=== PATIENT | male | born 2000 | race Caucasian/White ===

== ENCOUNTER 2023-06-08 17:22 | Emergency (ER) | payer OTHER, SELFPAY ==
[2023-06-08 17:37] VITALS: BP 111/62; PULSE 68; RESP 16; TEMP 36.9; O2SAT 99
--- NOTE | 2023-06-08 17:46 | ED.HA ---
HPI - Headache General Chief Complaint: Fall Stated Complaint: nausea,bump on head,headache Time Seen by Provider: 06/08/23 17:29 Source: patient Mode of arrival: ambulatory Limitations: no limitations History of Present Illness HPI Narrative: Arnol is a 23-year-old male patient presenting to the clinic today with complaints of head nausea, bump on his head, and headache. He reports he tripped down some steps today around 330 in hit the front of his head. He does have a use ache to the mid lower forehead. Denies any loss of consciousness or neck pain. No obvious epistaxis. Was able to get up on his own. Reported some dizziness right after falling and hitting his head but denies any dizziness currently. No visual changes. Related Data Allergies Allergy/AdvReac Type Severity Reaction Status Date / Time No Known Allergies Allergy Verified 06/08/23 17:54 Review of Systems Review of Systems: Pertinent positives per HPI. Patient denies any fever, chills, rash, visual changes, dizziness, cough, runny nose, sore throat, shortness of breath, chest pain, palpitations, nausea, vomiting, diarrhea, constipation, abdominal pain, or any urinary issues. PMFSH Comments At the time of my signature, I reviewed and agree with the nursing past medical, surgical, social, and family history. There is no relevant family history pertinent to the patient complaint. Exam Narrative: General: Well-developed, well nourished, in no apparent distress Head: Normocephalic, contusion/knot to the lower mid forehead Eyes: Pupils equally round and reactive to light bilaterally, EOM intact, sclera and conjunctive clear, no discharge, lids normal Ears: TMs intact and clear, ear canals clear, no drainage, grossly hearing normal. Nose: Nares patent, no discharge, no inflammation, no sinus tenderness. Mouth: Oropharynx without lesions or masses, good dentition, MMM. Tongue midline, even rise and fall of uvula Neck: Supple, trachea midline, no enlargement of anterior or posterior cervical nodes, no thyroid masses or goiter palpable. Cardio: Regular rate and rhythm, s1 and s2 normal, no murmur appreciated. Resp: Clear to auscultation bilaterally anteriorly and posteriorly, no rhonchi, rales, wheezing or rubs Musculoskeletal: No deformity, non-tender to palpation, grossly normal range of motion, muscle strength strong and equal, peripheral pulse strong, no edema, no cyanosis, normal gait and station Neuro: Alert and oriented x4 with normal speech, no focal deficits, cranial nerves I through XII intact, muscle strength 5 out of 5, sensation intact bilaterally Course Course Emergency Course: Portions of this record may have been created with voice recognition software. Level of Care: Express Care Visit Vital Signs Vital signs: Vital Signs Temperature 36.9 C 06/08/23 17:37 Pulse Rate 68 06/08/23 17:37 Respiratory Rate 16 06/08/23 17:37 Blood Pressure 111/62 06/08/23 17:37 Pulse Oximetry 99 06/08/23 17:37 Oxygen Delivery Room Air 06/08/23 17:37 Temperature 36.9 C 06/08/23 17:37 Pulse Rate 68 06/08/23 17:37 Respiratory Rate 16 06/08/23 17:37 Blood Pressure 111/62 06/08/23 17:37 Pulse Oximetry 99 06/08/23 17:37 Oxygen Delivery Room Air 06/08/23 17:37 Vital signs reviewed MDM - Headache MDM Narrative Medical decision making narrative: At the time of visit patient is resting comfortably on the exam table. Patient appears to be nontoxic. Plan: I suspect patient has a closed head injury. Patient's neuro exam was normal in the clinic today. Head injury instructions were reviewed with the patient he voiced understanding. Supportive measures were discussed with the patient and they voiced understanding discharge instructions and agrees to treatment plan. Return precautions reviewed Differential Diagnosis Differential diagnosis: Likely migraine, tension headache, headache and sinusitis Discharge
== END 2023-06-08 18:03 | disposition home or self-care (01) ==
PROVIDERS: Emergency Provider Nurse Practitioner Family; PCP Pediatrics
DX: S09.90XA Unspecified injury of head, initial encounter (principal); W10.9XXA Fall (on) (from) unspecified stairs and steps, initial encounter; R51.9 Headache, unspecified
CPT/HCPCS: 99213; G0463

== ENCOUNTER 2023-06-10 12:56 | Emergency (ER) | payer OTHER, SELFPAY ==
--- NOTE | 2023-06-10 13:02 | ED.SKABFB ---
HPI - Skin/Abscess/Foreign Bdy General Chief complaint: Skin/Abscess/Foreign Body Stated complaint: poss cyst Time Seen by Provider: 06/10/23 13:50 Source: patient and RN notes reviewed Mode of arrival: ambulatory Limitations: dementia History of Present Illness HPI narrative: 23-year-old male presents with concern for a ?cyst? to his forehead. Reports they he had a pimple in that area on Tuesday that he tried hot. Reports it has become painful, red, warm. He denies fever, body aches, chills, sweats. Patient is requesting it be on ?popped? complaint: other (Redness) Related Data Home Medications Medication Instructions Recorded Confirmed albuterol sulfate 90 mcg/actuation inhalation 06/08/23 aerosol inhaler brexpiprazole 4 mg tablet (Rexulti) mg 06/08/23 vilazodone 20 mg tablet mg 06/08/23 buspirone 15 mg tablet mg 06/10/23 magnesium 250 mg tablet 250 mg PO DAILY 06/10/23 06/10/23 Allergies Allergy/AdvReac Type Severity Reaction Status Date / Time No Known Allergies Allergy Verified 06/10/23 13:23 Review of Systems Review of Systems: CONSTITUTIONAL: Denies malaise, chills, sweats, or fever. EYES: Denies redness, or discharge. ENT: Denies rhinorrhea, congestion, swollen lips, swollen tongue CARDIOVASCULAR: Denies chest pain, palpitations, or edema. RESPIRATORY: Denies cough or dyspnea. GASTROINTESTINAL: Denies abdominal pain, nausea, vomiting SKIN: Reports redness, swelling near the right eyebrow. Denies purulent drainage, vesicles, bullae, numbness, pain beyond proportion MUSCULOSKELETAL: Denies joint pain or myalgia. NEUROLOGIC: Denies headache. All systems reviewed & are unremarkable except as noted in HPI and below PMFSH Comments At time of signature, agree with nursing past medical, surgical, social and family history. There is no relevant family history pertinent to the presenting complaint Exam Narrative: GENERAL: Well-appearing, well-nourished, and in no acute distress. HEAD: Normocephalic, atraumatic. EYES: PERRLA, conjunctivae clear, upper and lower eyelids unremarkable ENT: Mucous membranes moist. NECK: Supple. No lymphadenopathy CHEST: Clear to auscultation. No respiratory distress. HEART: Regular rate and rhythm. SKIN: Warm, dry. Erythema, induration, tenderness, warmth with sharp margins noted medial to the right eyelid. No vesicles, bullae, necrosis, ecchymosis, crepitus noted. NEURO: Alert and oriented x3. PSYCH: Normal mood and affect HENMT: Head images: 1. Approximately 2 cm area of erythema, warmth, induration without fluctuation, pinpoint pustule noted to the center. Sharp margins with no eye lid involvement Course Course Emergency Course: Patient is aware of diagnosis, understands and agrees to treatment plan. Anticipatory guidance given. Patient agrees to follow-up as directed and is aware of reasons to seek care at the emergency department. Portions of this record may have been created with voice recognition software Level of Care: Express Care Visit Vital Signs Vital signs: Reviewed. Procedures Abscess I/D face: Date of Incision: 06/10/23 Time of Incision: 14:12 Side (if applicable): right Technique: needle aspiration Amount of fluid expressed (mL): 0.1 Irrigation: No Packing used?: none I&D Results: Pus MDM - Skin/Abscess/Foreign Bdy MDM Narrative Medical decision making narrative: Does not appear at this time to be erythema multiforme, bullous, SJS, TEN; no evidence at this time to suggest RMSF, NSTI, endocarditis or Lyme disease; patient looks well, nontoxic and is tolerating oral intake; no neurologic signs or symptoms; no headache, photophobia or neck pain; afebrile. Patient does not have history of of penetrating trauma, laceration, blunt trauma, recent surgery, immunosuppression, malignancy, obesity, alcoholism, corticosteroid use. Discussed the importance of follow-up, patient agre
[2023-06-10 13:09] VITALS: BP 126/62; PULSE 66; RESP 18; TEMP 36.7; O2SAT 97
== END 2023-06-10 14:08 | disposition home or self-care (01) ==
PROVIDERS: Emergency Provider Nurse Practitioner; PCP Internal Medicine
DX: L03.211 Cellulitis of face (principal); L02.01 Cutaneous abscess of face; F41.9 Anxiety disorder, unspecified; F32.A Depression, unspecified
CPT/HCPCS: 10160; 99213; G0463

== ENCOUNTER 2024-07-17 15:07 | Emergency (ER) | payer OTHER, SELFPAY ==
--- NOTE | ~2024-07-17 | CT_ITS ---
CT cervical spine wo con Ordering provider: Mata Guzman MD History: . fall, [facility] . Comparison: None. Technique: CT of the cervical spine was performed without contrast. Sagittal and coronal reformatted images were also obtained and reviewed. Automated exposure control and iterative reconstruction jose hnique were employed. The dose-length product was 386.13 mGy-cm. FINDINGS: VERTEBRAE: No subluxation or acute fracture. The occipital condyles are intact. DISC SPACES: Normal. PARASPINOUS SOFT TISSUES: Normal. IMPRESSION: No acute osseous abnormality cervical spine. Reviewed, dictated and finalized at location A.
--- NOTE | ~2024-07-17 | CT_ITS ---
EXAMINATION: CT brain wo con DATE: 07/17/2024 15:40 INDICATION: Fall with closed head injury TECHNIQUE: Computed tomography (CT) of the head was performed without intravenous contrast. Sagittal and coronal reconstructions were performed. The mA was adjusted according to patient size. Iterative reconstruction technique was employed. The dose-length product was 605.33 mGy-cm. COMPARISON: None FINDINGS: No fracture. No acute intracranial hemorrhage, acute infarction or abnormal extra axial fluid collect ion. Ventricles are normal and symmetric. No mass/mass effect. The orbits, paranasal sinuses and mast oid air cells are normal. IMPRESSION: 1. Normal head CT. No fracture or acute intracranial process. Reviewed, dictated and finalized at location A.
[2024-07-17 15:09] VITALS: BP 122/55; PULSE 96; RESP 16; TEMP 36.9; O2SAT 98
--- NOTE | 2024-07-17 16:05 | ED.FALL ---
HPI - Fall General Chief Complaint: Fall Stated Complaint: fall from ladder, 9 ft, HI Time Seen by Provider: 07/17/24 15:23 History of Present Illness HPI Narrative: 24-year-old male presenting from urgent care for evaluation after a fall off of a roof approximately 8 ft at 8:00 a.m. this morning. Patient tripped and had a mechanical fall and landed onto his left hand and face. He did not lose consciousness and does not take any blood thinner medications. He was able to get up and ambulate without difficulty. Was complaining of some minor pain in his left elbow but no restricted range of motion. He went to urgent care and had imaging done that showed a left radial head fracture. He was placed an appropriate precautions and sling and provided orthopedics follow-up. Patient was not any pain. Patient was instructed by his boss to go to emergency department for clearance back to work as he did hit his head. Patient has no headache, no vision changes. No signs of concussion. No for nausea, vomiting, mental status changes, weakness, fatigue. He is moving all extremities equally, no tenderness in any of his extremities. Denies any complaints at this time. Not taking any pain prior to arrival. C-collar was placed in triage. Related Data Home Medications ?Medication ?Instructions ?Recorded ?Confirmed ?Last Taken ?Type albuterol sulfate 90 mcg/actuation inhalation 06/08/23 Unknown History aerosol inhaler brexpiprazole 4 mg tablet (Rexulti) mg 06/08/23 Unknown History vilazodone 20 mg tablet mg 06/08/23 Unknown History buspirone 15 mg tablet mg 06/10/23 Unknown History magnesium 250 mg tablet 250 mg PO DAILY 06/10/23 06/10/23 Unknown History Allergies Allergy/AdvReac Type Severity Reaction Status Date / Time No Known Allergies Allergy Verified 06/10/23 13:23 Review of Systems Review of Systems: As reviewed above in HPI Exam Narrative: GENERAL: [Well-appearing, well-nourished, and in no acute distress.] HEAD: [Normocephalic, atraumatic.] EYES: [PERRLA and EOMI.] ENT: Nares clear, no rhinorrhea or epistaxis. Mucous membranes moist. NECK: Supple. CHEST: [Clear to auscultation. No respiratory distress.] HEART: [Regular rate and rhythm]. No murmur heard. [Normal peripheral pulses.] ABDOMEN: [Soft, nondistended], [nontender], [No rigidity or guarding] EXTREMITIES: Normal range of motion. [No edema.] Full flexion extension of bilateral elbows and wrist. Flexion extension at the shoulder intact. No midline spinal tenderness. No restricted range of motion of the neck. No step-offs or deformities. Ambulatory without difficulty. SKIN: Warm, dry, no rash. NEURO: [No focal deficits]. Alert and oriented [x3.] PSYCH: [Normal mood and affect.] Course Vital Signs Vital signs: Vital Signs Temperature 36.9 C 07/17/24 15:09 Pulse Rate 96 07/17/24 15:09 Respiratory Rate 16 07/17/24 15:09 Blood Pressure 122/55 L 07/17/24 15:09 Pulse Oximetry 98 07/17/24 15:09 Oxygen Delivery Room Air 07/17/24 15:09 Temperature 36.9 C 07/17/24 15:09 Pulse Rate 96 07/17/24 15:09 Respiratory Rate 16 07/17/24 15:09 Blood Pressure 122/55 L 07/17/24 15:09 Pulse Oximetry 98 07/17/24 15:09 Oxygen Delivery Room Air 07/17/24 15:09 MDM - Fall MDM Narrative Medical decision making narrative: 24-year-old male presenting to the ER for evaluation after falling off a roof. It was mechanical slip and fall and he landed onto his left wrist and face but has no visible evidence of trauma or injury. He was able to get up without assistance and did not lose consciousness. Patient went to urgent care initially for some left elbow pain and received diagnosis of a left radial head fracture and was given a sling and provide orthopedics follow-up. Patient has no complaints of his left elbow at this time. And has good distal neuro vasculature. Full range of motion of the extremities without any reproducible pain. He has no findings of trauma his examination, no midline tenderness, normal neurological assessment. No blood thinner use. Aside from the mechanisms of injury he is relatively low risk for significant intracranial or cervical pathology. Head CT and cervical spine CT ordered this time. He is hemodynamically stable and not in any pain. Imaging studies were independently reviewed and interpreted by radiology. CT scan showed no acute intracranial findings and no cervical pathology. Patient is cleared for work and safe for discharge home at this time. Patient given return precautions and also instructed to follow-up with his provided drug and alcohol treatment specialist from his previous visit from urgent care. Medical Records Attestation: I reviewed the patient's medical records. Imaging Data Attestation: I personally reviewed and interpreted this imaging study as follows: My impression: Impressions Head CT 07/17/24 15:41 IMPRESSION: 1. Normal head CT. No fracture or acute intracranial process. Cervical Spine CT 07/17/24 15:51 IMPRESSION: No acute osseous abnormality cervical spine. Discharge Plan Discharge Clinical Impression: CHI (closed head injury), Fall from roof Patient Disposition: Home Condition: Stable Instructions: Antibiotic Form, Head Injury (ED) Additional Instructions: Your CT of the head and cervical spine shows no injuries. Take Tylenol and ibuprofen for any aches or pains. You are cleared to return to work without any restrictions. Follow-up with the provided drug and alcohol treatment specialist from your recent visit to urgent care for your radial head fracture that does not require any interventions today. Follow-up with regular doctor. Return with any new or worsening concerns. Patient Language: German Prescriptions: No Action magnesium 250 mg Tablet 250 mg PO DAILY buspirone 15 mg tablet sulfamethoxazole-trimethoprim 800-160 mg tablet 1 tablet PO Q12H 7 Days Qty: 14 0RF albuterol sulfate 90 mcg/actuation HFA aerosol inhaler INHALATION vilazodone 20 mg tablet Rexulti 4 mg tablet Follow-up/Referrals: Lexis,Zachary Prescott MD [Primary Care Provider] - Stand Alone Forms: Work/School Release IP Time of Disposition: 16:05
--- OUTSIDE RECORDS SUMMARY | 2024-07-17 17:20 | XMS_ITS | Clinical Summary ---
Author Organization [facility] Address [address] [place] [id number] Care Team Providers Care Residence Hall Director Name Role Phone Zachary Pires MD Primary Care Provider Zachary Pires MD Unavailable [phone] Allergies No known active allergies Medications busPIRone (BUSPAR) 15 mg tabletIndications: Generalized Anxiety Disorder Take 1 tablet (15 mg total) by mouth every morning 04/11/19 21 Active Rexulti 4 mg tabletIndications: Depression Treatment Adjunct Take 1 tablet (4 mg total) by mouth nightly 10/22/19 23 Active albuterol HFA (PROVENTIL HFA,VENTOLIN HFA,PROAIR HFA) 90 mcg/actuation inhalerIndications :Mild intermittent asthma without complication INHALE 2 PUFFS BY MOUTH EVERY 6 HOURS NEEDED FOR WHEEZING 8.5 g 1 05/23/19 24 Active Additional Information Patient taking differently:2 puff Every 6 hours PRN,wheezing, for wheezing, Informant: Self, Reported on 10/24/2023 vilazodone (VIIBRYD) 40 mg tablet Take 1 tablet (40 mg total) by mouth nightly 09/08/19 24 Active magnesium oxide (MAG-OX) 400 mg (241.3 mg elemental magnesium) tabletIndications: hypomagnesemia Take 1 tablet (400 mg total) by mouth nightly Active ARIPiprazole (ABILIFY) 5 mg tablet Take 1 tablet (5 mg total) by mouth daily Active oxyCODONE (ROXICODONE) solution 5 mg/5 mLIndications:Pain Take 5 mL (5 mg total) by mouth every 4 (four) hours as needed for pain for up to 40 doses 200 mL 11/08/19 Active human papillomavirus 9-valent 0.5 mL suspensionIndicati ons:Encounter for wellness examination in adult Pharmacy to inject 0.5 mL IM at 0 and 4 months. He has already had his 1st dose. 0.5 mL 2 01/17/20 24 Active Active Problems Problem Noted Date Diagnosed Date HERMAN (obstructive sleep apnea) 01/25/2023 Gynecomastia 06/20/2017 Mixed anxiety depressive disorder 04/18/2017 Resolved Problems Problem Noted Date Diagnosed Date Resolved Date Large tonsils 06/16/2023 01/17/2024 Obstructive sleep apnea syndrome 06/16/2023 01/17/2024 Encounter for preventive health examination 04/04/2017 04/20/2019 Immunizations Immunization Administration Dates Next Due DTaP, Unspecified 05/09/2003, 0,1998,07/02,1998 Flucelvax Influenza Quad 01/04/2018,02/27/2017 HPV, Quadrivalent 08/08/2012 Hep A, Unspecified 08/08/2012,10/27/2009 Hep B, Unspecified 1998,1998, 998 HiB 09/07/1999, 9,1998,05/02 Influenza, Quadrivalent, Monica l Culture-based MDCK, Preservative Free, Antibiotic Free, Intramuscular 02/21/2022 Influenza, Quadrivalent, Rec ombinant, Egg Free, Preservative Free, Intramuscular 03/23/2021 Influenza, Quadrivalent, Spl it, Preservative Free, Intramuscular 01/24/2020,02/26/2019 Influenza, Unspecified 03/30/2013 MMR 05/09/2003,04/23/1999 Meningococcal ACWY, Unspecified 10/27/2009 Polio, Unspecified 05/09/2003, 9,1998,05/02 Tdap 04/20/2019,10/27/2009 Varicella 06/25/1999 Surgical History Surgery Date Site/Laterality Comments TONSILLECTOMY Medical History Medical History Date Comments Depression Anxiety OCD (obsessive compulsive disorder) PTSD (post-traumatic stress disorder) HERMAN (obstructive sleep apnea) Family History Medical History Relation Name Comments No Known Problems Father No Known Problems Mother Relation Name Status Comments Father Alive Mother Alive Social History Tobacco Use Types Packs/Day Years Used Date Smoking Tobacco: Former Cigarettes 0.1 0.8 S tarted: 10/10/2023 Passive Smoke Exposure: Current Smokeless Tobacco: Never Tobacco Cessation:Counseling Given: Not Answered Comments:Patient smokes a couple times a week. Started smoking cigarettes a couple of weeks ago. Alcohol Use Standard Drinks/Week Comments Not Currently 0 (1 standard drink = 0.6 oz pur e alcohol) AUDIT-C Answer Date Recorded Q1: How often do you have a drink containing alc ohol? 2-4 times a month 01/17/2024 Q2: How many drinks containi ng alcohol do you have on a typical day when you are drinking? 1 or 2 01/17/2024 Q3: How often do you have si x or more drinks on one occasion? Never 01/17/2024 Personal Safety Answer Date Recorded Have you ever been in or are you currently in a harmful physical or emotional relationship or is someone making you feel afraid or unsafe? 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 Not on file Not on file Obstetrics History Last Filed Vital Signs Vital Sign Reading Time Taken Comments Blood Pressure 108/72 01/17/2024 7:21 AM CDT Pulse 78 01/17/2024 7:21 AM CDT Temperature 36.4 C (97.5 F) 01/17/2024 7:21 AM CDT Respiratory Rate 13 11/08/2023 9:50 AM CDT Oxygen Saturation 95% 01/17/2024 7:21 AM CDT Inhaled Oxygen Concentration - - Weight 74.6 kg (164 lb 8 oz) 01/17/2024 7:21 AM CDT Height 170.2 cm (5' 7 ) 10/24/2023 11:25 AM CDT Body Mass Index 25.76 10/24/2023 11:25 AM CDT Plan of Treatment Health Maintenance Due Date Last Done Comments Depression Screening 1998 Varicella Vaccines (2 of 2 - 2-dose childhood series) 2002 06/25/1999 HPV Vaccines (2 - Male 2-dose series) 02/08/2013 08/08/2012 Covid-19 Vaccine ( season) 2023 02/21/2022, 03/23/2021, 07/24/2020, Additional history exists Influenza Vaccine (Season Ended) 2024 02/21/2022, 03/23/2021, 01/24/2020, Additional history exists Regular Well Visit/Exam 18-64 01/16/2025 01/17/2024, 06/19/2021, 04/20/2019 DTaP/Tdap/Td Vaccine (8 - Td or Tdap) 04/20/2029 04/20/2019, 10/27/2009, 05/09/2003, Additional history exists Hepatitis B Screening Completed 1998 , 1998, 1998 Hepatitis C Screening Completed 04/20/2019 Pneumococcal vaccine <65 Aged Out No longer eligible based on patient's age to complete this topic Procedures Procedure Name Priority Date/Time Associated Diagnosis Comments HEPATITIS C ANTIBODY Routine 04/20/2019 12:26 PM CONSTRUCTION ASSISTANT Screen for STD (sexually transmitted disease) from Last 3 Months or Most Recently Relevant to Health Maintenance Results * Hepatitis C antibody (04/20/2019 12:26 PM CONSTRUCTION ASSISTANT) Pathologist [facility] Hep C Ab Nonreactive Nonreactive [facility] Comment: Interpretive Data Positive results should be confirmed by a molecular method. If positive, a second separately collected sample should be submitted for Hepatitis C Virus (HCV) RNA Detection and Quantitation by Real-Time Reverse Film Processor-PCR (RT-PCR). Current interpretive data was last revised on 2016. Blood specimen (specimen) 04/20/2019 12:26 PM CONSTRUCTION ASSISTANT 04/20/2019 5:21 PM CONSTRUCTION ASSISTANT Zachary Pires MD LAB MICROBIOLOGY - GEN ERAL ORDERABLES Edited Result - Final [facility] Department [place] [address] from Last 3 Months or Most Recently Relevant to Health Maintenance Insurance [employer] Address: [facility] [id number] [place] [address] [employer] Address: [facility] [id number] [place] [address] [employer] [employer] Address: [facility] [id number] [place] [address] [employer] Care Teams Residence Hall Director Relationship Specialty Start Date End Date Zachary Pires MD [address] [place] [address] PCP - General 10/30/19 Zachary Pires MD [address] [place] [address] 10/30/19
--- OUTSIDE RECORDS SUMMARY | 2024-07-17 17:20 | XMS_ITS | Encounter Summary ---
Author Organization [facility] Address [address] [place] [address] Phone Care Team Providers Care Ad Clerk Name Role Phone Zachary Pires MD Primary Care Provider Zachary Pires MD Unavailable [phone] Encounter Details Date Type Department Care Team (Late st Contact Info) Description 05/11/[address] 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
--- OUTSIDE RECORDS SUMMARY | 2024-07-17 17:20 | XMS_ITS ---
Author Organization [facility] Address [address] [place] [address] Care Team Providers Care Distributor Publications Name Role Phone Mariela Bennett Primary Care Provider Sylvia Pena Unavailable [phone] REASON FOR VISIT Referral Addressed: Client referred to EMDR therapy Encounters Encounter Location Date Provider Diagnosis [address] [address] 07/04/2024 Sylvia Pena PTSD (post-traumatic stress disorder) F43.10 Assessments Encounter Date Diagnosis (ICD Code) Assessment Notes Treatment Notes Treatment Clinical Notes Section Notes 07/04/2024 PTSD (post-traumatic stress disorder) (ICD-10 - F43.10) Plan Of Treatment No Information Progress Notes * Andrew LANGENiviaOB:2000 ( 24 yo M)Acc No.[id number]:07/04/2024 Patient: Arnol AGUILERA Provider: Leonardo Pena :2000 A ge:24 Y S ex:Male Date:07/04/2024 Phone: Address:[address] [place], [place] [id number] Pcp:Mariela Bennett Subjective: * Chief Complaints: * R eferral Addressed: Client referred to EMDR therapy * HPI: B ehavioral Health Treatment: Patient is seeking services for EMDR counseling. Client was provided central access information and intake process for scheduling. * Medical History: * Surgical History: * Hospitalization/Major Diagno stic Procedure: * Medications: Objective: * Vitals: * Examination: G eneral Examination: Mental Status Exam A ttitude and Behavior C ooperativeMood S tableAffect A nxiousSpeech A ppropriateThought Process C oherent and Goal Directed, LogicalInsight A ppropriateJudgement A ppropriateSensorium and Cognition A lertOriented to P erson, Place, Time, Situation. D uring today's session via telehealth. Assessment: * Assessment: 1. P TSD (post-traumatic stress disorder) - F43.10 (Primary) Plan: * Treatment: * Procedure Codes: 9 0832 PSYTX PT&/FAMILY 30 MINUTES, Modifiers: AJ * * Electronically co-signed by Lula Holm LCSW, [id number] on 07/04/2024 at 04:35 PM CDT Sign off status: Completed true * Provider: Leonardo Pena Date: 0 07/04/2024 Generated for Meño perkins/Martin/Mindy on: 0 07/17/2024 05:20 PM CDT History and Physical Notes * Examination Category Sub-Category Detail Notes Category Not es General Examination Mental Status Exam Attitude and Behavior: Cooperative During today's session via telehealth Mood: Stable Affect: Anxious Speech: Appropriate Thought Process: Coherent and Goal Direc krupa, Logical Insight: Appropriate Judgement: Appropriate Sensorium and Cognition: Alert Oriented to: Person, Place, Time, Situat ion
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
--- OUTSIDE RECORDS SUMMARY | 2024-07-17 17:20 | XMS_ITS ---
Author Organization [facility] Address [address] [place] [address] Care Team Providers Care Belt And Link Shop Supervisor Name Role Phone Mariela Bennett Primary Care Provider Encounters Encounter Location Date Provider Diagnosis [address] [place] [address] 06/26/2024 Mariela Bennett Plan Of Treatment No Information Progress Notes * Cisco LANGEOB:2000 ( 24 yo M)Acc No.[id number]:06/26/2024 Patient: Arnol AGUILERA :2000 A ge:24 Y S ex:Male Phone: Address:[address] [place], [address] * true * Date: Generated for Meño perkins/Martin/eTransmitting on: 0 07/17/2024 05:20 PM CDT
--- OUTSIDE RECORDS SUMMARY | 2024-07-17 17:20 | XMS_ITS | Referral Summary ---
Author Organization [facility] Address [address] [place] [address] Care Team Providers Care Nailhead Setter Name Role Phone Zachary Pires MD Primary Care Provider Zachary Pires MD Unavailable [phone] Allergies No known active allergies Medications busPIRone [...] Unspecified 05/09/2003, 9,1998,05/02 Tdap 04/20/2019,10/27/2009 Varicella 06/25/1999 Social History Tobacco Use Types Packs/Day Years [...] on file Legal Sex Male 11:24 AM FERMENTING CELLARS RECEIVER Gender Identity Male 04/15/2020 12:15 PM FERMENTING CELLARS RECEIVER Sexual Orientation Straight 04/15/2020 12 :15 PM FERMENTING CELLARS RECEIVER Occupation Industry Job Start Date Job End Date [employer] Not on file 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 Comment: Interpretive Data Positive results should be confirmed by a molecular method. If positive, a second separately collected sample should be submitted for Hepatitis C Virus (HCV) RNA Detection and Quantitation by Real-Time Reverse Study Manager-PCR (RT-PCR). Current interpretive data was last revised on 2016. Blood specimen (specimen) 04/20/2019 12:26 PM FERMENTING CELLARS RECEIVER 04/20/2019 5:21 PM FERMENTING CELLARS RECEIVER us Zachary Pires MD LAB MICROBIOLOGY - GEN ERAL ORDERABLES Edited Result - Final [facility] [place] [address] from Last 3 Months or Most Recently Relevant to Health Maintenance Insurance [employer] Address: [facility] [id number] [place] [address] [facility] [employer] Address: [address] [place] [address] [employer] Address: [address] [place] [address] [employer] Address: [facility] [id number] [place] [address] Care Teams Nailhead Setter Relationship Specialty Start Date End Date Zachary Pires MD [address] [place], [place] [id number] PCP - General 10/30/19 Zachary Pires MD [address] [place] [address] 10/30/19
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
--- OUTSIDE RECORDS SUMMARY | 2024-07-17 17:52 | XMS_ITS | Referral Summary ---
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 If positive, a second separately collected sample should be submitted for Hepatitis C Virus (HCV) RNA Detection and Quantitation by Real-Time Reverse Insulation Worker Furnace Installer-PCR (RT-PCR). Current interpretive data was last revised on 2016. Blood specimen (specimen) 04/20/2019 12:26 PM BIOLOGY RESEARCH ASSISTANT 04/20/2019 5:21 PM BIOLOGY RESEARCH ASSISTANT us Zachary Pires MD LAB MICROBIOLOGY - GEN ERAL ORDERABLES Edited Result - Final [facility] [place] [address] from Last 3 Months or Most Recently Relevant to Health Maintenance Insurance [facility] EM[employer]EE [employer]ALTH PLANS Address: [facility] [id number] [place] [address] [employer] [employer]ANS Address: [address] [place] [address] [employer] [employer] Address: [id number] [place] [address] [employer] [facility] [facility] [employer] Address: [facility] [id number] [place] [address] Care Teams Automobile Salesman Relationship Specialty Start Date End Date Zachary Pires MD [address] [place], [place] [id number] PCP - General 10/30/19 Zachary Pires MD [address] [place] [address] 10/30/19
--- OUTSIDE RECORDS SUMMARY | 2024-07-17 17:52 | XMS_ITS | Encounter Summary ---
Author Organization [facility] Address [address] [place] [address] Phone Care Team Providers Care Nursing Associate Name Role Phone Zachary Pires MD Primary Care Provider Zachary Pires MD Unavailable [phone] Encounter Details Date Type Department Care Team (Late st Contact Info) Description 05/11/2021 Telephone [facility] [address] [place] [address] Zachary Pires MD [address] [place] [address] Social History Tobacco Use Types Packs/Day Years Used Date Smoking Tobacco: Former Cigars Smokeless Tobacco: Never Alcohol Use Standard Drinks/Week Comments Not Currently 0 (1 standard drink = 0.6 oz pur e alcohol) Sex and Gender Information Value Date Recorded Sex Assigned at Not on file Legal Sex Male 11:24 AM BOILER FIREMAN Gender Identity Male 04/15/2020 12:15 PM BOILER FIREMAN Sexual Orientation Straight 04/15/2020 12 :15 PM BOILER FIREMAN 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
--- OUTSIDE RECORDS SUMMARY | 2024-07-17 17:52 | XMS_ITS | Clinical Summary ---
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 COATER Gender Identity Male 04/15/2020 12:15 PM JEWELRY COATER Sexual Orientation Straight 04/15/2020 12 :15 PM JEWELRY COATER Occupation Industry Job Start Date Job End Date [employer] Not on file Not on file Not on file [employer] Not on file Not on file Not [...] HEPATITIS C ANTIBODY Routine 04/20/2019 12:26 PM JEWELRY COATER Screen for STD (sexually transmitted disease) from Last 3 Months or Most Recently Relevant to Health Maintenance Results * Hepatitis C antibody (04/20/2019 12:26 PM JEWELRY COATER) Pathologist [facility] Hep C Ab Nonreactive Nonreactive [facility] Comment: Interpretive Data Positive results should be confirmed by a molecular method. If positive, a second separately collected sample should be submitted for Hepatitis C Virus (HCV) RNA Detection and Quantitation by Real-Time Reverse Cherry Picker Operator-PCR (RT-PCR). Current interpretive data was last revised on 2016. Blood specimen (specimen) 04/20/2019 12:26 PM JEWELRY COATER 04/20/2019 5:21 PM JEWELRY COATER Zcahary Pires MD LAB MICROBIOLOGY - GEN ERAL ORDERABLES Edited Result - Final [facility] Department [place] [address] from Last 3 Months or Most Recently Relevant to Health Maintenance Insurance CIGNA CIGNA CIGNA CIGNA Care Teams Supervisor Cooler Service Relationship Specialty Start Date End Date Zachary Pires MD [address] [place] [address] PCP - General 10/30/19 Zachary Pires MD [address] [place] [address] 10/30/19
== END 2024-07-17 16:35 | disposition home or self-care (01) ==
PROVIDERS: Emergency Provider Student in an Organized Health Care Education/Training Program; PCP Internal Medicine
DX: S09.90XA Unspecified injury of head, initial encounter (principal); W13.2XXA Fall from, out of or through roof, initial encounter
CPT/HCPCS: 70450; 72125; 99284

== ENCOUNTER 2024-12-23 12:05 | Emergency (ER) | payer SELFPAY ==
[2024-12-23 12:16] VITALS: BP 138/69; PULSE 103; RESP 18; TEMP 37.6; O2SAT 97
[2024-12-23 12:49] LABS: EDSTREPNEGPOS1 Negative (Negative)
--- NOTE | 2024-12-23 13:03 | ED.URI ---
HPI - URI/Sore Throat General Chief Complaint: Upper Respiratory Infection Stated Complaint: Sore Throat Time Seen by Provider: 12/23/24 13:00 pro Source: patient, RN notes reviewed and old records reviewed Mode of arrival: ambulatory Limitations: no limitations History of Present Illness HPI Narrative: 24 year old male patient presents to express care with complaints of sore throat, nasal congestion with drainage, productive cough of yellow tinged thick mucous has felt feverish and has had chills with some body aches since yesterday.. Patient reports that he took home Covid test today which was negative. Patient states that he has been taking Tylenol and Ibupfrofen for his symptoms. MD elicited complaint: fever, cough, sore throat, rhinorrhea and nasal congestion Pertinent past history: other (reactive airway disease) Onset (ago): day(s) (since yesterday) Consistency: constant Severity: moderate Description of mucous: yellow Able to tolerate fluids by mouth: Yes Treatments prior to arrival: acetaminophen and ibuprofen Related Data Home Medications ?Medication ?Instructions ?Recorded ?Confirmed ?Last Taken ?Type albuterol sulfate 90 mcg/actuation inhalation 06/08/23 Unknown History aerosol inhaler brexpiprazole 4 mg tablet (Rexulti) mg 06/08/23 Unknown History buspirone 15 mg tablet mg 06/10/23 Unknown History magnesium 250 mg tablet 250 mg PO DAILY 06/10/23 06/10/23 Unknown History vilazodone 40 mg tablet mg 12/23/24 Unknown History Allergies Allergy/AdvReac Type Severity Reaction Status Date / Time No Known Allergies Allergy Verified 12/23/24 12:19 Review of Systems Review of Systems: CONSTITUTIONAL: reports malaise, chills, sweats, unknown if fever. EYES: Denies visual changes, redness, or discharge. ENT: Reports rhinorrhea, congestion, sinus pain, no otalgia and positive for sore throat. CARDIOVASCULAR: Denies chest pain, palpitations, or edema. RESPIRATORY: Reports productive cough.? Denies dyspnea. GASTROINTESTINAL: Denies abdominal pain, nausea, vomiting, diarrhea SKIN: Denies rash or itching. MUSCULOSKELETAL: Reports myalgia. NEUROLOGIC: Denies headache. All systems reviewed & are unremarkable except as noted in HPI and below PMFSH Past Medical History Medical History Anxiety and depression Reactive airway disease Surgical History Surgical History History of tonsillectomy Social History Social History Smoking status: Current some day smoker Tobacco type: cigarettes Alcohol intake: current Alcohol use details: social Substance use type: does not use Gender identity (if verbalized by the patient): Male Comments At time of signature, agree with nursing past medical, surgical, social and family history. There is no relevant family history pertinent to the presenting complaint Exam Narrative: GENERAL: Well-appearing, well-nourished, and in no acute distress. HEAD: Normocephalic EYES: PERRLA, conjunctivae clear ENT: Nares clear, turbinates edematous and erythematous, clear discharge. Mucous membranes moist. TM pearly weiss with dull light reflex bilaterally; no tragal tenderness. Oropharynx erythematous without lesions. Tonsils not present and throat without exudate, no drooling, no hoarseness, no trismus, uvula midline, post nasal drainage NECK: Supple. No lymphadenopathy CHEST: Clear to auscultation, breath sounds equal. No wheezing, rhonchi, rales, or stridor. No respiratory distress, speaks in full sentences.productive cough SAO2 97% on room air HEART: Regular rate and rhythm. No murmur heard. SKIN: Warm, dry, no rash. NEURO: Alert and oriented x3. PSYCH: Normal mood and affect Course Course Emergency Course: Patient is aware of diagnosis, understands and agrees to treatment plan.? Anticipatory guidance given.? Patient agrees to follow-up as directed and is aware of reasons to seek care at the emergency department. Portions of this record may have been created with voice recognition software Level of Care: Express Care Visit Vital Signs Vital signs: Vital Signs Temperature 37.6 C H 12/23/24 12:16 Pulse Rate 103 H 12/23/24 12:16 Respiratory Rate 18 12/23/24 12:16 Blood Pressure 138/69 12/23/24 12:16 Pulse Oximetry 97 12/23/24 12:16 Oxygen Delivery Room Air 12/23/24 12:16 Temperature 37.6 C H 12/23/24 12:16 Pulse Rate 103 H 12/23/24 12:16 Respiratory Rate 18 12/23/24 12:16 Blood Pressure 138/69 12/23/24 12:16 Pulse Oximetry 97 12/23/24 12:16 Oxygen Delivery Room Air 12/23/24 12:16 Reviewed MDM - URI/Sore Throat MDM Narrative Medical decision making narrative: Differential diagnosis considered: Ordoñez virus, strep pharyngitis, allergic rhinitis, upper respiratory tract infection, sinusitis, rhinosinusitis, nasopharyngitis. viral pharyngitis, otitis media, otitis externa, pneumonia, bronchitis, viral cough syndrome, viral syndrome, and influenza.? Exam findings show no acute concerns or changes; patient is non-toxic appearing and is in no distress.? Patient is appropriate for outpatient treatment and follow-up. Differential Diagnosis Differential diagnosis: Likely upper respiratory infection, viral infection, pharyngitis and other (strep pharyngitis, cough and congestion) Medical Records Attestation: I reviewed the patient's medical records. Lab Data Attestation: I reviewed the patient's lab results. Lab results narrative: strep screen negative, culture sent Labs: Lab Results 12/23/24 Range/Units 12:14 POC Grp A Strep Screen Negative (Negative) reviewed Critical Care Time Critical Care Time Critical Care Time: No Discharge Plan Discharge Clinical Impression: Upper respiratory infection Qualifiers: URI type: unspecified URI Qualified Code(s): J06.9 - Acute upper respiratory infection, unspecified Pharyngitis Qualifiers: Pharyngitis/tonsillitis etiology: unspecified etiology Qualified Code(s): J02.9 - Acute pharyngitis, unspecified Patient Disposition: Home Condition: Stable Instructions: Antibiotic Form Additional Instructions: Increase fluids especially juices and water [id number] cough and cold medicine of your choice for your symptoms Zyrtec, Claritin or Mae daily for nasal congestion or drainage heat to the face 20-30 minutes 4-6 times a day for pain Salt water gargles, throat lozenges or throat sprays as desired . Take the entire course of antibiotics. Throw away your current toothbrush and begin using a new toothbrush in 48 hours in order to prevent re-infection. Sanitize all reusable water bottles . Do not share items with others. Salt water gargles may alleviate some of the throat discomfort. You can take Tylenol or ibuprofen per the package instructions for pain/fever. If your symptoms persist, change or worsen significantly before you can contact your personal physician then please, without delay, go to the emergency department for further evaluation. Follow-up with PCP in 7-10 days or sooner if needed Follow up with PCP soon in regards to your blood pressure which is elevated above threshold for referral. Blood pressure above 120/80 may indicate pre-hypertension. 138/69 Patient Language: Citizen Of [place] Prescriptions: New amoxicillin 875 mg tablet 875 mg PO Q12H Qty: 20 0RF No Action magnesium 250 mg Tablet 250 mg PO DAILY buspirone 15 mg tablet vilazodone 40 mg tablet albuterol sulfate 90 mcg/actuation HFA aerosol inhaler INHALATION Rexulti 4 mg tablet Follow-up/Referrals: Lexis,Zachary Prescott MD [Primary Care Provider, Unknown] Time of Disposition: 13:15 Quality Woodrow Coma Scale Eyes: Open Verbal: Oriented and Alert Motor: Follows Commands Altagracia Coma Total Score: 15
== END 2024-12-23 13:20 | disposition home or self-care (01) ==
PROVIDERS: Emergency Provider Registered Nurse; PCP Internal Medicine
DX: J06.9 Acute upper respiratory infection, unspecified (principal); J02.9 Acute pharyngitis, unspecified; J45.909 Unspecified asthma, uncomplicated; F41.9 Anxiety disorder, unspecified; F32.A Depression, unspecified; F17.210 Nicotine dependence, cigarettes, uncomplicated
CPT/HCPCS: 87081; 87880; 99213; G0463

== ENCOUNTER 2025-01-11 08:29 | Emergency (ER) | payer SELFPAY ==
--- NOTE | ~2025-01-11 | XR_ITS ---
EXAMINATION: XR chest 2V, 01/11/2025 8:50 CDT HISTORY: cough, SOB, wheezing COMPARISON: No comparisons available. Technique: 2 views obtained. Findings: The lungs are clear, no effusion. No pneumothorax. Heart is normal size. Mediastinal and hilar contours are within normal limits. Bony thorax no acute abnormality. Impression: No acute cardiopulmonary abnormality. Reviewed, dictated and finalized at location P. Impression: No acute cardiopulmonary abnormality.
--- NOTE | 2025-01-11 08:30 | ED_ITS ---
HPI - URI/Sore Throat General Chief Complaint: Upper Respiratory Infection Stated Complaint: Cough Time Seen by Provider: 01/11/25 08:40 Source: patient, RN notes reviewed and old records reviewed Mode of arrival: ambulatory Limitations: no limitations History of Present Illness HPI Narrative: 24-year-old male presents to the [facility] patient's of a cough since yesterday. States he started with a sore throat a couple of days ago. Had similar symptoms 2 and half weeks ago, was prescribed amoxicillin and stated he did finish all of the antibiotics. Related Data Home Medications ?Medication ?Instructions ?Recorded ?Confirmed ?Last Taken ?Type albuterol sulfate 90 mcg/actuation inhalation 06/08/23 Unknown History aerosol inhaler vilazodone 40 mg tablet mg 12/23/24 Unknown History Allergies Allergy/AdvReac Type Severity Reaction Status Date / Time No Known Allergies Allergy Verified 01/11/25 08:39 Review of Systems Review of Systems: All systems reviewed & are unremarkable except as noted in HPI and below Constitutional: Constitutional: Reports no additional constitutional complaints ENT: Reports as per HPI and Reports sore throat Cardiovascular: Cardiovascular: Reports no additional cardiovascular complaints, Denies chest pain and Denies dyspnea Respiratory: Respiratory: Denies chest congestion, Reports cough and Denies dyspnea Musculoskeletal: Musculoskeletal: Reports no additional musculoskeletal complaints Integumentary/Breasts: Skin/Breast: Reports system reviewed and no additional complaints, except as docu PMFSH Past Medical History Medical History Anxiety and depression Reactive airway disease Surgical History Surgical History History of tonsillectomy Social History Social History Smoking status: Current some day smoker Tobacco type: cigarettes Alcohol intake: current Alcohol use details: social Substance use type: does not use Gender identity (if verbalized by the patient): Male Comments At the time of my signature, I reviewed and agree with the nursing past medical, surgical, social, and family history. There is no relevant family history pert inent to the patient complaint. Exam Const: General: cooperative, healthy appearing, comfortable, no acute distress, well developed, alert and well nourished Nutritional Appearance: well nourished Orientation/consciousness: patient oriented x3 Limitations: no limitations HENMT: Head: normal to inspection Ears: hearing grossly normal bilaterally, external ears normal, TM's normal bilaterally, EAC's normal, mastoids normal and no periauricular adenopathy Mouth: Yes Normal oral and palatal mucosa present, Yes lip normal, Yes tongue normal and Yes moist mucous membranes Throat: posterior oropharynx normal, uvula midline, tonsils absent and no uvular edema Eyes: General: appearance normal, both eyes and all related structures Alignment and Position: alignment normal Neck: Neck: normal visual inspection, full ROM, no lymphadenopathy and no meningeal signs Chest: Chest palpation & inspection: normal inspection of the chest Resp: Effort & Inspection: normal respiratory effort and able to speak in complete sentences Auscultation: no crackles, no rales, no rhonchi, wheezes expiratory wheezes and throughout and diminished lung sounds bilateral in the lower lung cisneros Cardio: Rate: regular rate Skin: General skin exam: normal color and no rashes or lesions noted Neuro: General: patient oriented x3, gait normal, moves all extremities and no meningeal signs Cognition (Neuro): normal cognition Speech: normal speech Gait exam (Neuro): Normal gait present Extrem: General: normal to inspection, full ROM, capillary refill normal and normal gait Psych: Appearance: grossly normal and well kempt Mental Status: mental status grossly normal Speech and movement: Normal speech and movement present and Clear speech present Affect: normal affect Attitude: cooperative Course Course Level of Care: Express Care Visit Vital Signs Vital signs: Vital Signs Temperature 98.7 F 01/11/25 08:38 Pulse Rate 105 H 01/11/25 08:38 Respiratory Rate 16 01/11/25 08:38 Blood Pressure 96/72 L 01/11/25 08:38 Pulse Oximetry 94 01/11/25 08:38 Oxygen Delivery Room Air 01/11/25 08:38 Temperature 98.7 F 01/11/25 08:38 Pulse Rate 96 01/11/25 09:05 Respiratory Rate 14 01/11/25 09:05 Blood Pressure 128/80 01/11/25 09:05 Pulse Oximetry 95 01/11/25 09:05 Oxygen Delivery Room Air 01/11/25 08:38 Reviewed MDM - URI/Sore Throat MDM Narrative Medical decision making narrative: Patient sitting in exam room. Patient is nontoxic, vitals stable. Patient reports sore throat last week, better, cough since yesterday. Wheezing is noted. x-ray done, no acute findings. breathing treatment given, chest x-ray done which was negative. Flu COVID negative, strep positive Post breathing treatment patient clear to auscultation, full lung sounds are noted throughout. No wheezing. Patient reports feeling much better. Patient is appropriate for outpatient treatment with antibiotic and albuterol. Discharge instructions reviewed with patient, as well as provided in writing per nursing staff. The instructions also include specific and strict return/GO TO THE ER as well as f/u information. All questions have been answered, and the patient deny any further questions with discharge and discharge plan. Some parts of this dictation were generated by voice recognition software and may contain typographical and/or grammatical inaccuracies. Differential Diagnosis Differential diagnosis: Likely upper respiratory infection, otitis media, sinusitis, viral infection, bronchitis, influenza and pharyngitis Lab Data Labs: Lab Results 01/11/25 01/11/25 Range/Units 08:58 09:03 POC Influenza A Ag Negative (Negative) POC Influenza B Ag Negative (Negative) POC SARS CoV-2 Ag Negative (Negative) POC Grp A Strep Screen Positive (Negative) Reviewed Imaging Data Radiologist's impression: EXAMINATION: XR chest 2V, 01/11/2025 8:50 CDT HISTORY: cough, SOB, wheezing COMPARISON: No comparisons available. Technique: 2 views obtained. Findings: The lungs are clear, no effusion. No pneumothorax. Heart is normal size. Mediastinal and hilar contours are within normal limits. Bony thorax no acute abnormality. Impression: No acute cardiopulmonary abnormality. Critical Care Time Critical Care Time Critical Care Time: No Discharge Plan Discharge Clinical Impression: Strep pharyngitis, Bronchitis Patient Disposition: Home Condition: Stable Instructions: Antibiotic Form, Strep Throat (ED), Acute Bronchitis (ED) Additional Instructions: Your rapid COVID test were negative Your rapid flu test was negative Your chest x-ray did not show signs of pneumonia. It is very important to treat your symptoms. Drink plenty of water, Gatorade, Pedialyte, ice pops or Jell-O. -Alternate Tylenol and Motrin per package directions for fever or pain. You can alternate every 4 hours -Antihistamine medication such as Zyrtec/Claritin/Mae during the day can help improve symptoms. -doing daily nasal irrigations can help relieve pressure your sinuses. Things like a Neti pot -Use Flonase twice a day for 5 days then daily to help reduce the inflammation and dry up your sinuses. -You can also use Mucinex. Be sure to drink plenty of water with this medication at least 8 ounces with every dose and it is important to drink 8 to 10 glasses of water per day. Water is a natural decongestant -Eat and drink things that are easy to swallow, like tea or soup, or popsicles. -Frequent hand washing or hand inspector eyeglass frames is one of the best ways to prevent spread of infection. -Using a vaporizer or humidifier at night will also help thin secretions and help with coughing up phlegm. -Follow up with primary care provider in 7-10 days if condition is not improving - For new or worsening symptoms go directly to the nearest ER After 24-48 hours on antibiotics, Throw the toothbrush away, start using a new one. Please be sure to wash bed linens especially pillow cases. Repeat once you finish the antibiotics. Do not share drinks. Take Motrin alternating with Tylenol for pain and fever alternating every 4 hours. Increase fluids, avoid caffeine. Give plenty of water, juice, Gatorade, Pedialyte, ice pops in Jell-O Follow up with Primary provider if not getting better this week For new or worsening symptoms go directly to the emergency room Patient Language: Irish Prescriptions: New cephalexin 500 mg capsule 500 mg PO Q12H Qty: 20 0RF albuterol sulfate [Ventolin HFA] 90 mcg/actuation HFA aerosol inhaler 2 puff inhalation QID PRN (Reason: shortness of breath or wheezing) Qty: 6.7 0RF No Action vilazodone 40 mg tablet albuterol sulfate 90 mcg/actuation HFA aerosol inhaler INHALATION Follow-up/Referrals: Lexis,Zachary Prescott MD [Primary Care Provider, Unknown] - 1 Week Clinical Impression: Strep pharyngitis; Bronchitis Stand Alone Forms: Work/School Release IP Time of Disposition: 09:19
[2025-01-11 08:38] VITALS: BP 96/72; PULSE 105; RESP 16; TEMP 37.1; O2SAT 94
[2025-01-11] MEDS: IPRATROPIUM 0.5 MG/ALBUTEROL SULFATE 2.5 MG (BASE) AMPUL.NEB 3 ML INHALATION (08:54)
[2025-01-11 09:00] LABS: EDSTREPNEGPOS1 Positive (Negative)
[2025-01-11 09:05] VITALS: BP 128/80; PULSE 96; RESP 14; O2SAT 95
[2025-01-11 09:05] LABS: EDCOVIDSCREEN Negative (Negative); EDINFLUASCREEN Negative (Negative); EDINFLUBSCREEN Negative (Negative)
== END 2025-01-11 09:31 | disposition home or self-care (01) ==
PROVIDERS: Emergency Provider Nurse Practitioner; PCP Internal Medicine
DX: J02.0 Streptococcal pharyngitis (principal); J40 Bronchitis, not specified as acute or chronic; Z20.822 Contact with and (suspected) exposure to COVID-19; J45.909 Unspecified asthma, uncomplicated; F32.A Depression, unspecified; F17.210 Nicotine dependence, cigarettes, uncomplicated
CPT/HCPCS: 71046; 87426; 87804; 87880; 99213; G0463